=== PATIENT | female | born 1975 | race African-American/Black ===

== ENCOUNTER 2018-03-25 11:19 | Outpatient (CLI) | payer OTHER ==
--- NOTE | 2018-03-25 11:45 | XRay Report ---
XRAY CHEST TWO VIEWS: 03/25/18 11:19:00 CLINICAL: Cough. COMPARISON: None FINDINGS: Normal heart and pulmonary vasculature. The lungs are normally expanded and clear.The bones and soft tissues are unremarkable. IMPRESSION: Normal chest.
== END 2018-03-25 11:20 | disposition home or self-care (01) ==
LOC: SPVIMAG 11:19
PROVIDERS: ATTEND Family Medicine
DX: R05 Cough (principal)
CPT/HCPCS: 71046